=== PATIENT | male | born 1970 | race Caucasian/White ===

== ENCOUNTER 2017-04-09 12:04 | Observation (INO) | payer OTHER ==
[2017-04-09] MEDS ORDERED: NS 0.9% 1000 ML* 1,000 ML IV ONE (12:08)
--- NOTE | 2017-04-09 12:58 | RAD ---
INDICATION: Chest pain. Pneumonia. CHF. COMPARISON: None TECHNIQUE: PA and lateral dual-energy views were obtained. FINDINGS: Bones/Soft Tissues: There are no acute bony findings. Cardiomediastinal: The cardiomediastinal silhouette is normal. Lungs: There are no infiltrates. Pleura: There are no pleural effusions. Other: None IMPRESSION: NEGATIVE EXAMINATION.
[2017-04-09 13:08] LABS: Hematocrit 43 % (42-52); Mean Corpuscular HGB Conc 33 g/dl (31-36); Mean Corpuscular Hemoglobin 30 pg (27-31); Mean Corpuscular Volume 93 fL (80-94); Mean Platelet Volume 8 um3 (7.4-10.4); Red Blood Count 4.62 10^6/ul (4.0-5.4); Red Cell Distribution Width 14 % (10.5-15); White Blood Count 5.4 10^3/ul (3.5-10.8)
[2017-04-09 13:22] LABS: BUN/Creatinine Ratio 14.3 (8-20); Calcium 8.7 mg/dL (8.6-10.3); EGFR African American 125.4 (>60); EGFR Non-African American 97.5 (>60); Globulin 2.7 g/dL (2-4); Potassium 3.9 mmol/L (3.5-5.0); Total Bilirubin 0.8 mg/dL (0.2-1.0); Total Protein 6.7 g/dL (6.4-8.9)
[2017-04-09] MEDS ORDERED: Nitroglycerin TAB 0.4 MG* 0.4 MG TAB SL ONE (13:36)
[2017-04-09] MEDS ORDERED: LORazepam TAB(*) 1 MG PO ONE (14:13)
[2017-04-09] MEDS ORDERED: Ondansetron INJ* 2 MG/ML VIAL IV PRN (14:13)
[2017-04-09] MEDS ORDERED: Acetaminophen TAB* 325 MG PO PRN (14:13)
--- NOTE | 2017-04-09 18:23 | HP ---
HISTORY AND PHYSICAL: DATE OF ADMISSION: 04/09/17 PRIMARY CARE PROVIDER: None. ATTENDING PHYSICIAN WHILE IN THE HOSPITAL: Ronak Aguilera MD* (report being dictated by David Patel NP) CHIEF COMPLAINT: Chest pain. HISTORY OF PRESENT ILLNESS: Mr. Bess is a 47-year-old male patient, who is healthy. He only takes multivitamin daily. 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 It got worse when he took a deep breath. He got associated shortness of breath. He became diaphoretic. He did not get nauseous and he says the pain did not go into his jaw or down his arm. He denied having any recent URI symptoms and denied having any abdominal discomfort and denies having any burning sensation. He says that the discomfort was really bad. He felt like somebody was sitting on his chest. He says that he has not experienced this discomfort before. He has had palpitations in the past, felt to be related to anxiety. He says that he has not had any experience of this in a long time. He denies having any chest pain with exertion. He was concerned because the pain was kept getting worse and worse and worse, that happened around 10 o'clock this morning. So, he called his and a friend and they convinced him to come into the ER where he was evaluated by Dr. Marie and there was concern because his mother did have a history of heart disease in her 30s and because of this, the hospitalist service was asked to evaluate for admission. PAST MEDICAL HISTORY: Denied. PAST SURGICAL HISTORY: He has had a gastric bypass. HOME MEDICATIONS: Denied with the exception that he takes a multivitamin daily. ALLERGIES TO MEDICATIONS: Include no known drug allergies. FAMILY HISTORY: His mother had a history of heart disease in her 30s. Both parents had cancers. SOCIAL HISTORY: He does not smoke. He does drink 1 to 2 beers on a daily basis. 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 Surrogate decision maker is his . REVIEW OF SYSTEMS: There is no documented fever. He denied having any significant weight change. There was no double vision. He denies having any ear discharge. There was no rhinorrhea, no sore throat, no thyroid enlargement. He denies having any chest pain currently. Denies having any abdominal pain. There is no nausea. No vomiting. No dysuria. No frequency. There was no seizure. No loss of consciousness. No pruritus. No skin ulcerations. Review of 14 systems completed, all others negative. PHYSICAL EXAMINATION GENERAL: At this time, Mr. Bess is a 47-year-old male patient. He is sitting in the ER stretcher. He does not appear to be in any acute distress. VITAL SIGNS: Reveals blood pressure 109/65, pulse 86, respirations 20, O2 sat 98%, and temperature 99.2. HEENT: Head: Atraumatic. Eyes: EOMs intact. Sclerae anicteric, not pale. Throat: Oral mucosa appears to be moist. No oropharyngeal erythema. NECK: Supple. LUNGS: Clear to auscultation. No wheezes, rales, or rhonchi. HEART: Sounds S1 and S2. Regular rate and rhythm. No murmurs, rubs, or gallops. ABDOMEN: Soft, it was flat, and it was nontender. Bowel sounds are present. EXTREMITIES: Pulses 2+ throughout. No peripheral edema. He is able to move all 4 extremities with 5/5 strength. NEUROLOGIC: He is awake. He is alert and oriented x3. His speech is clear. No gross focal deficits. SKIN: Intact. LABORATORY DATA/IMAGING STUDIES: Labs today revealed WBC of 5.4, RBC of 4.62, hemoglobin 14.0, hematocrit of 43, platelet count of 190. The INR was 0.93. D - dimer less than 200. Sodium 136, potassium 3.9, chloride 105, bicarb 27, BUN 12, creatinine of 0.84, glucose 107, lactic 1, calcium 8.7. Total bilirubin 0.8 , AST 28, ALT 28, alk phos 60. Troponin 0. BNP of 14. Albumin 4.0. He did have a chest x-ray obtained today, which on my review, I did not appreciate any acute infiltrates. Radiology read it as regular examination. The EKG obtained today, revealed a sinus bradycardia. He had no ST elevations and no T-wave inversions. No previous for comparison. Old medical records reviewed. ASSESSMENT AND PLAN: Mr. Bess is a 47-year-old male patient who is healthy , coming in today with complaints of chest discomfort, concerning for acute coronary syndrome. We were asked to evaluate for admission. He will be admitted under observation status for: 1. Chest pain: Again at this point, there is concern that this could be acute coronary syndrome. My plan is to go ahead and cycle his troponins. I will get a stress test in the morning, get serial EKGs. Place the patient on telemetry. I am going to give him nitro paste. I am going to hold on the beta-blockers. His resting heart rate is around 60 and we will go ahead and give him an aspirin and we will check stress test, troponins, EKGs and we will follow. 2. DVT prophylaxis. He is moderate risk, will place on heparin subcu. 3. Code status: He is full code. 4. Fluids, electrolytes, and nutrition: He can have a heart healthy diet and NPO after midnight. TIME SPENT: Time spent on admission was approximately 45 minutes, greater than half time was spent [id number] with the patient, obtaining my history and physical, other half time was spent going over the plan of care with the patient and implementing the plan of care. I discussed the plan of care with my attending, Dr. Aguilera, he is in agreement. DAVID PATEL NP [id number]/CPS #: [id number] VINCENT
[2017-04-09] MEDS: Nitroglycerin 2% OINT* 1 GM PAK TOPICAL SCH (18:44)
[2017-04-09] MEDS: Heparin VIAL(*) 5000 UNITS/ML VIAL (FIVE THOUSAND) SUBCUT SCH (22:03)
[2017-04-10] MEDS: Nitroglycerin 2% OINT* 1 GM PAK TOPICAL SCH ×3 (01:01→12:49)
[2017-04-10 04:35] LABS: Hematocrit 40 % (42-52); Hemoglobin 13.1 g/dl (14.0-18.0); Mean Corpuscular HGB Conc 33 g/dl (31-36); Mean Corpuscular Hemoglobin 31 pg (27-31); Mean Corpuscular Volume 93 fL (80-94); Mean Platelet Volume 8 um3 (7.4-10.4); Red Blood Count 4.28 10^6/ul (4.0-5.4); Red Cell Distribution Width 14 % (10.5-15); White Blood Count 5.4 10^3/ul (3.5-10.8)
[2017-04-10 04:48] LABS: BUN/Creatinine Ratio 18.2 (8-20); Calcium 8.2 mg/dL (8.6-10.3); EGFR African American 118.9 (>60); EGFR Non-African American 92.4 (>60); HDL Cholesterol 67.6 mg/dL; Potassium 3.8 mmol/L (3.5-5.0)
[2017-04-10 07:42] VITALS: BP 117/76
[2017-04-10] MEDS: Heparin VIAL(*) 5000 UNITS/ML VIAL (FIVE THOUSAND) SUBCUT SCH ×2 (07:46→14:28)
[2017-04-10] MEDS ORDERED: Aspirin Low Dose CHEW TAB* 81 MG PO SCH (09:00)
--- NOTE | 2017-04-10 13:19 | RAD ---
Edited for charges. INDICATION: Chest pain. Family history of heart disease. COMPARISON: No relevant prior exams available on the [facility] PACS for comparison. TECHNIQUE: 10.000 mCi of Tc-99m Myoview were administered IV. SPECT images of the heart were obtained. Later on the same day. Under the direction of Dr. Simmons, an exercise stress test was performed. The patient achieved a peak heart rate of 175 bpm, 102 % of the age- predicted maximum. Subsequently, the patient was given an IV injection of 25.800 mCi Tc- 99m Myoview. SPECT images of the heart were obtained and a gated wall motion study was performed. FINDINGS: Gated wall motion images were obtained at stress and demonstrate wall motion to be within normal limits. The calculated left ventricular ejection fraction is 54 % at stress. Estimated LEFT ventricular end diastolic volume is 128 mL. TID 1.02. Diaphragmatic attenuation noted. Both the nonattenuation corrected and attenuation corrected series remarkable for a small region of decreased perfusion at the mid segment of the junction of the anterior wall and septum at stress with reversal at rest concerning for a small focus of ischemia. No fixed myocardial perfusion defects evident. IMPRESSION: 1. The constellation of findings is concerning for a small region of ischemia at the mid segment junction of the anterior and lateral frausto. 2. Normal range estimated LEFT ventricular ejection fraction. Borderline dilated LEFT ventricle based on estimated end-diastolic volume. ASSESSMENT: LOW RISK. Based on imaging criteria from ACC/AHA 2002 Guideline Update for the Management of Patients With Chronic Stable Angina Table 23. Noninvasive Risk Stratification. MTDD
--- NOTE | 2017-04-11 03:36 | DS ---
CC: Dr. Freitas* DISCHARGE SUMMARY: DATE OF ADMISSION: 04/09/17 DATE OF DISCHARGE: 04/10/17 DISCHARGE DIAGNOSES: Chest pain, possibly musculoskeletal. SECONDARY DIAGNOSES: Anxiety. MEDICATIONS AT DISCHARGE: None. LABORATORY DATA THROUGHOUT THE PATIENT'S HOSPITAL STAY: Included: Troponin was 0 throughout his hospital stay. Cholesterol profile showed triglycerides of 102, total cholesterol of 128, LDL of 40, and HDL of 67. D-dimer was below 200. On 04/10/17, sodium 137, potassium 3.8, chloride 106, carbon dioxide was 26, BUN 16, creatinine 0.88. The patient's nuclear medicine cardiac stress test, impression: "The constellation of findings is concerning for a small region of ischemia at the mid segment junction of the anterior and lateral frausto. Normal range estimated left ventricular ejection fraction, borderline dilated left ventricle based on the estimated end-diastolic volume." The test was assessed as "low risk." The EF was noted at 54% at stress. 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 The pain was pleuritic associated with movement. He spent a night on overnight observation on telemetry monitored bed with no arrhythmias noted. His cardiac stress test showed a small area of possibility of ischemia. I discussed the patient's stress test results with the fuels engineer who was present during the patient's treadmill stress. The patient's EKG within normal limits and negative troponins and that the pain was related more to movement and makes the possibility of any significant cardiac ischemia unlikely. The area of ischemia noted on cardiac stress test was very small. At this point , the patient is recommended to follow up with his primary care provider. If his pain occurs with exertion and he has further chest pain, he may need to be referred further to Cardiology for further evaluation. At this point, the patient is recommended to follow up with primary care provider set by our office and it is going to be Dr. Freitas on 04/18/17 at 3: 50 p.m. PHYSICAL EXAMINATION: Physical exam at time of discharge, blood pressure 117/76 , heart rate of 49 and regular, respiratory 16, and oxygen saturation 100% on room air. General: The patient is a very pleasant 47-year-old male who is in no acute distress. Alert, awake, and oriented x3. HEENT: Head atraumatic, normocephalic. Eyes: Pupils are equal, reactive to light and accommodation. Oropharynx is clear. Mucosa moist. Neck: Supple, no JVD. No bruits bilaterally. Cardiovascular: Regular rate and rhythm. No murmurs. Respiratory: Clear to auscultation bilaterally. Abdomen: Soft, nontender, bowel sounds present in all 4 quadrants. Extremities: There is no edema. Pulses +2 bilaterally. There is no clubbing or cyanosis. Neuro Evaluation: Speech clear. Cranial nerves II through XII grossly intact. Motor strength is 5/5 bilaterally. Skin: No ecchymotic areas or rashes noted. Please note that this is a short summary of the patient's hospitalization. Please refer to further medical records for details. [id number]/CPS #: [id number] MTDD
== END 2017-04-10 15:05 | disposition home or self-care (01) ==
LOC: ED 12:04 → MEDTELE 14:03
PROVIDERS: ADMIT Internal Medicine; ATTEND Internal Medicine
DX: R07.9 Chest pain, unspecified (principal); F41.9 Anxiety disorder, unspecified; Z98.84 Bariatric surgery status; R00.1 Bradycardia, unspecified; R06.02 Shortness of breath; Z79.899 Other long term (current) drug therapy
CPT/HCPCS: 36415; 71020; 78452; 80048; 80053; 80061; 83036; 83605; 83880; 84484; 85025; 85379; 85610; 93005; 93017; 99285; A9270-GY; A9502; G0378